=== PATIENT | male | born 1945 | race Hispanic/Latino ===

== ENCOUNTER 2017-09-01 13:25 | Inpatient (IN) | payer MEDICARE ==
[2017-09-01 15:29] LABS: ALB/GLOB RATIO 1.2 (1.1-1.8); BASO # 0.01 K/mm3 (0.0-2.0); BASO % 0.1 % (0.0-3.0); EOS % 0.4 % (1.5-5.0); GRAN # 7.21 (1.4-6.5); GRAN % 78.4 % (50.0-68.0); HEMOGLOBIN 13.7 g/dL (14.0-18.0); LYMPH # 1.2 (1.2-3.4); LYMPH % 12.5 % (22.0-35.0); MEAN CELL VOLUME 91.6 fl (80.0-105.0); MEAN CORPUSCULAR HGB CONC 33.8 g/dl (31.0-37.0); MEAN PLATELET VOLUME 11.7 fl (7.0-11.0); MONO # 0.8 (0.1-0.6); MONO % 8.6 % (1.0-6.0); RBC 4.42 10^6/uL (3.5-6.1); RED CELL DISTRIBUTION WIDTH 13.9 % (11.5-14.5); WHITE BLOOD COUNT 9.2 10^3/ul (4.5-11.0)
[2017-09-01 15:31] LABS: URINE BILIRUBIN NEGATIVE (NEGATIVE); URINE BLOOD NEGATIVE (NEGATIVE); URINE GLUCOSE (UA) NEGATIVE (NEGATIVE); URINE LEUKOCYTE ESTERASE NEGATIVE Leu/uL (NEGATIVE); URINE PROTEIN TRACE mg/dL (<30 mg/dL)
[2017-09-01 15:33] LABS: URINE APPEARANCE CLEAR (CLEAR); URINE COLOR YELLOW (YELLOW)
[2017-09-01 15:36] LABS: ALT/SGPT 25 U/L (7-56); AST/SGOT 20 U/L (17-59); BLOOD UREA NITROGEN 8 mg/dL (7-21); GFR AFRICAN-AMERICAN > 60; GFR NON-AFRICAN AMERICAN > 60
[2017-09-01 15:37] LABS: PROTHROMBIN TIME 11.8 SECONDS (9.4-12.5)
[2017-09-01 15:38] LABS: INR 1.03 (0.93-1.08)
[2017-09-01 15:40] LABS: TROPONIN I < 0.01 ng/mL
[2017-09-01 15:54] LABS: B-TYPE NATRIURETIC PEPTIDE 212 pg/mL (0-450)
[2017-09-01 16:17] LABS: URINE BACTERIA NEG (NEG); URINE EPITHELIAL CELLS 0 - 2 /hpf (0-5); URINE RBC 0 - 2 /hpf (0-2); URINE WBC NEGATIVE /hpf (0-6)
--- NOTE | 2017-09-01 16:37 | CT ---
PROCEDURE: CT HEAD WITHOUT CONTRAST. HISTORY: dizziness COMPARISON: None available. TECHNIQUE: Axial computed tomography images were obtained through the head/brain without intravenous contrast. Radiation dose: Total exam DLP = 895 mGy-cm. This CT exam was performed using one or more of the following dose reduction techniques: Automated exposure control, adjustment of the mA and/or kV according to patient size, and/or use of iterative reconstruction technique. FINDINGS: HEMORRHAGE: No intracranial hemorrhage. BRAIN: No mass effect or edema. No atrophy or chronic microvascular ischemic changes. VENTRICLES: Unremarkable. No hydrocephalus. CALVARIUM: Unremarkable. PARANASAL SINUSES: Mucosal thickening in the maxillary sinuses. Partial opacification of the ethmoid air cells MASTOID AIR CELLS: Unremarkable as visualized. No inflammatory changes. OTHER FINDINGS: None. IMPRESSION: No acute intracranial findings
--- NOTE | 2017-09-01 17:34 | RAD ---
HISTORY: dizziness COMPARISON: No prior. FINDINGS: LUNGS: No active pulmonary disease. PLEURA: No significant pleural effusion identified, no pneumothorax apparent. CARDIOVASCULAR: Normal. OSSEOUS STRUCTURES: No significant abnormalities. VISUALIZED UPPER ABDOMEN: Normal. OTHER FINDINGS: None. IMPRESSION: No active disease.
--- NOTE | 2017-09-01 19:40 | ED PDOC ---
Arrival/HPI - General Chief Complaint: Dizziness/Lightheaded Time Seen by Provider: 09/01/17 14:52 Historian: Patient - History of Present Illness Narrative History of Present Illness (Text): 09/01/17 19:36 71-year-old male presents today with dizziness and near syncope. Patient states he woke up today and states he just wasn't feeling well. Patient states he feels like when he tries to ambulate he is going to pass out. He is complaining of a slight frontal headache. Patient states he sometimes gets headaches prior to having a seizure. Patient states he took his Dilantin today. Patient states he was having chest pain this morning he denies shortness of breath. Denies abdominal pain. Denies any urinary symptoms. Patient states he just isn't feeling well. Pt denies fever/chills. No other complaints. Past Medical History - Provider Review Nursing Documentation Reviewed: Yes - Travel History Have you recently traveled outside [place] w/in the past 3 mons?: No - Infectious Disease Hx of Infectious Diseases: None - Psychiatric Hx Substance Use: No - Anesthesia Hx Anesthesia: No Family/Social History - Physician Review Nursing Documentation Reviewed: Yes Family/Social History: Unknown Family HX Smoking Status: Unknown If Ever Smoked Hx Alcohol Use: No Hx Substance Use: No Allergies/Home Meds Allergies/Adverse Reactions: Allergies No Known Allergies Allergy (Verified 09/01/17 14:36) Home Medications: Home Meds Medication Instructions Recorded Confirmed Phenytoin, Extended [Dilantin 0 mg PO DAILY 09/01/17 09/01/17 [place]] Review of Systems - Review of Systems Constitutional: Fatigue. absent: Fevers Respiratory: absent: SOB, Cough Cardiovascular: Chest Pain. absent: Palpitations, Syncope Gastrointestinal: absent: Abdominal Pain, Constipation, Diarrhea, Nausea, Vomiting Genitourinary Male: absent: Dysuria, Frequency, Hematuria Musculoskeletal: absent: Arthralgias, Back Pain, Neck Pain Skin: absent: Rash, Pruritis Neurological: Headache, Dizziness, Disequilibrium. absent: Speech Changes Psychiatric: absent: Anxiety, Depression Physical Exam Vital Signs Reviewed: Yes Vital Signs Temp Pulse Resp BP Pulse Ox 09/01/17 15:56 99.2 F 66 18 133/98 H 97 09/01/17 13:40 98.8 F 62 18 143/57 L 99 Temperature: Afebrile Blood Pressure: Normal Pulse: Regular Respiratory Rate: Normal Appearance: Positive for: Well-Appearing, Non-Toxic, Comfortable Pain Distress: None Mental Status: Positive for: Alert and Oriented X 3 Finger Stick Blood Glucose: 106 - Systems Exam Head: Present: Atraumatic Pupils: Present: PERRL Extroacular Muscles: Present: EOMI Conjunctiva: Present: Normal Ears: Present: Normal, NORMAL TM Mouth: Present: Moist Mucous Membranes Neck: Present: Normal Range of Motion, Trachea Midline Respiratory/Chest: Present: Clear to Auscultation, Good Air Exchange. No: Respiratory Distress, Accessory Muscle Use Cardiovascular: Present: Regular Rate and Rhythm, Normal S1, S2. No: Murmurs Abdomen: No: Tenderness, Distention, Peritoneal Signs, Rebound, Guarding Upper Extremity: Present: Normal ROM Lower Extremity: Present: Normal ROM Neurological: Present: GCS=15, Speech Normal Skin: Present: Warm, Dry, Normal Color Psychiatric: Present: Alert, Oriented x 3 Medical Decision Making ED Course and Treatment: 09/01/17 19:38 71-year-old male with a history of seizures presents with dizziness and near syncope Patient was stable vital signs in no distress CAT scan of the head:FINDINGS: HEMORRHAGE: No intracranial hemorrhage. BRAIN: No mass effect or edema. No atrophy or chronic microvascular ischemic changes. VENTRICLES: Unremarkable. No hydrocephalus. CALVARIUM: Unremarkable. PARANASAL SINUSES: Mucosal thickening in the maxillary sinuses. Partial opacification of the ethmoid air cells MASTOID AIR CELLS: Unremarkable as visualized. No inflammatory changes. OTHER FINDINGS: None. IMPRESSION: No acute intracranial findings CBC within normal limits CMP within normal limits Troponin within normal limits Urinalysis within normal limits CMP within normal limits ASA given po Case was discussed in depth with Dr. Banks excepts observational status admission to telemetry for evaluation of near-syncope and chest pain we'll consult Dr. Marquez and Dr. Hilton. all aspects of this case were discussed the attending of record. Impression: Near syncope, dizziness Admit observational status to telemetry 09/01/17 19:41 - Lab Interpretations Lab Results: 09/01/17 14:45 09/01/17 14:45 Lab Results 09/01/17 15:15: Phenytoin 10 09/01/17 14:45: Sodium 138, Potassium 3.8, Chloride 103, Carbon Dioxide 25, Anion Gap 13, BUN 8, Creatinine 0.7 L, Est GFR ( Amer) > 60, Est GFR (Non -Af Amer) > 60, Random Glucose 115 H, Calcium 9.0, Magnesium 1.9, Total Bilirubin 0.5, AST 20, ALT 25, Alkaline Phosphatase 69, Lactate Dehydrogenase 414, Total Creatine Kinase 111, Troponin I < 0.01, NT-Pro-B Natriuret Pep 212, Total Protein 7.2, Albumin 4.0, Globulin 3.2, Albumin/Globulin Ratio 1.2 09/01/17 14:45: Urine Color Yellow, Urine Appearance Clear, Urine pH 6.0, Ur Specific [place] 1.020, Urine Protein Trace H, Urine Glucose (UA) Negative, Urine Ketones Trace H, Urine Blood Negative, Urine Nitrate Negative, Urine Bilirubin Negative, Urine Urobilinogen 1.0 H, Ur Leukocyte Esterase Negative, Urine RBC 0 - 2, Urine WBC Negative, Ur Epithelial Cells 0 - 2, Urine Bacteria Neg 09/01/17 14:45: PT 11.8, INR 1.03, APTT 29.0 09/01/17 14:45: WBC 9.2, RBC 4.42, Hgb 13.7 L, Hct 40.5 L, MCV 91.6, MCH 31.0, MCHC 33.8, RDW 13.9, Plt Count 142, MPV 11.7 H, Gran % 78.4 H, Lymph % (Auto) 12.5 L, [place] % (Auto) 8.6 H, Eos % (Auto) 0.4 L, Baso % (Auto) 0.1, Gran # 7.21 H, Lymph # (Auto) 1.2, [place] # (Auto) 0.8 H, Eos # (Auto) 0.0, Baso # (Auto) 0.01 - RAD Interpretation Radiology Orders: 09/01/17 14:52 CHEST PORTABLE [RAD] Stat 09/01/17 14:53 HEAD W/O CONTRAST [CT] Stat - Medication Orders Current Medication Orders: Discontinued Medications Acetaminophen (Tylenol 325mg Tab) 975 mg PO STAT STA Stop: 09/01/17 16:55 Last Admin: 09/01/17 17:20 Dose: 975 mg MAR Pain/Vitals Document 09/01/17 17:20 LA (Rec: 09/01/17 17:21 LA [id number]) Pain Reassessment Is This A Pain ReAssessment? No Sleep Is patient sleeping during reassessment? No Presence of Pain Presence of Pain Yes Pain Scale Used Pain Scale Used Numeric Location Pain Location Body Site Hand Description Acute Intensity 4 Scale Used Numeric Aspirin (Aspirin) 325 mg PO STAT STA Stop: 09/01/17 16:58 Last Admin: 09/01/17 17:42 Dose: 325 mg NIHSS Scale ([place]) Time Performed: 14:55 - How Severe is the Stoke Baseline Level of Consciousness: 0=Alert LOC to Questions: 0=Both comments correct LOC to commands: 0=Obeys both correctly Best Gaze: 0=Normal Visual: 0=No visual loss Facial: 0=Normal Motor Arm - Left: 0=No drift Motor Arm - Right: 0=No drift Motor Leg - Left: 0=No drift Motor Leg - Right: 0=No drift Limb Ataxia: 0=Absent Sensory: 0=Normal Best Language: 0=No aphasia Dysarthia: 0=Normal articulation Extinction & Inattention (Neglect): 0=Normal, no object Score: 0 Risk Level: No Stroke Risk Disposition/Present on Arrival - Present on Arrival Any Indicators Present on Arrival: No History of DVT/PE: No History of Uncontrolled Diabetes: No Urinary Catheter: No History of Decub. Ulcer: No History Surgical Site Infection Following: Obstetrical/Gynecological Surgery - Disposition Have Diagnosis and Disposition been Completed?: Yes Diagnosis: Dizziness, Near syncope Disposition: HOSPITALIZED Disposition Time: 17:00 Patient Problems: Current Active Problems Problem Status Onset Dizziness Acute Near syncope Acute Condition: FAIR
[2017-09-01 22:26] VITALS: BMI 22.9
[2017-09-02] MEDS: Phenytoin 100 mg/4 ml Oral Susp UD PO SCH ×3 (05:43→21:36)
--- NOTE | 2017-09-02 10:44 | CARD ---
APPROVED REPORT EKG Measurement Heart [id number] <Conclusion> Normal sinus rhythm Nonspecific ST and T wave abnormality
[2017-09-02] MEDS ORDERED: Potassium Chloride 20 mEq ER Tab PO ONE (12:15)
[2017-09-02] MEDS: Insulin Reg-LOW-Coverage SC SCH ×3 (12:40→21:46)
[2017-09-02 13:13] LABS: TROPONIN I < 0.01 ng/mL
--- NOTE | 2017-09-02 22:54 | CON ---
REASON FOR CONSULTATION AND FOLLOWUP: Cardiac evaluation, dizziness, feels that he seemed to pass out. HISTORY OF PRESENT ILLNESS: Patient is a 71-year-old male with past medical history of hypertension, type 2 diabetes, anxiety disorder, who goes to Cardiology, Dr. Leena Euceda and yearly get stress test and echo, last stress test 6 weeks ago. Denies any chest pain, shortness of breath, or any palpitations. Feels yesterday dizzy and feels that he is going to fall, so came to the emergency room. Denies any loss of consciousness, denies any chest pain, denies any palpitation. PAST HISTORY: Significant for seizure disorder, type 2 diabetes, hypertension. SOCIAL HISTORY: Denies any smoking, but drinks socially. RECENT CARDIAC WORKUP: A stress test and echo done by PMD, Dr. Euceda, 4 to 6 weeks ago and was told okay. Patient usually gets yearly stress tests in with Dr. Euceda. REVIEW OF SYSTEMS: As per HPI. PHYSICAL EXAMINATION: VITAL SIGNS: Temperature afebrile, heart rate 60, blood pressure 146/80. HEENT: PERRLA. Extraocular muscles intact. NECK: Supple. No carotid bruit. No thyromegaly. CHEST: Clear to auscultation. HEART: S1 and S2, regular. ABDOMEN: Soft. EXTREMITIES: Clubbing and cyanosis negative. LABORATORY DATA: Blood workup as follows. WBC 9.8, hemoglobin 13.3, hematocrit 40.5, and platelet count 142. Chemistry shows sodium 138, potassium 3.8, chloride 103, carbon dioxide 25, anion gap of 13. BUN 8, creatinine 0.8. Troponin 0.02. EKG shows normal sinus rhythm, no acute ST-T changes noted. IMPRESSION: Dizziness, feels dizzy when standing more, denies any chest pain, no shortness of breath. History of diabetes, hypertension, and hyperlipidemia as well as history of seizure disorder. RECOMMENDATIONS: We will get lipid profile, TSH, hemoglobin A1c. We will get echo to assess LV function. Patient get periodically a stress test, last stress test 6 weeks ago, was told negative. We will follow with you. If he remains stable, possible discharge home. We will start insulin before meals and at bedtime low dose coverage. Lisinopril 10 mg daily starting today. We will get echo, lipid profile, TSH. Further recommendations will be made depending on hospital course. We will follow with you. Thank you Dr. Banks for providing me the opportunity in taking care of the patient, Juanpablo Vega. Genesis Hilton MD
[2017-09-03] MEDS ORDERED: Sodium Chloride 0.9% 250 ML IV STA (00:10)
--- NOTE | 2017-09-03 00:22 | CP.PCM.PN ---
Subjective - Date & Time of Evaluation Date of Evaluation: 09/02/17 Time of Evaluation: 23:50 - Subjective Subjective: Patient seen for hypotension noted by his RN(82/58)He is asymptomatic. His BP has been normal earlier today.Pt was admitted for c/o dizziness and feeling faint. Objective - Vital Signs/Intake and Output Vital Signs (last 24 hours): Temp Pulse Resp BP Pulse Ox 98.4 F 56 L 18 109/66 97 09/02/17 18:00 09/02/17 22:00 09/02/17 18:00 09/02/17 18:00 09/02/17 18:00 Intake and Output: 09/02/17 09/03/17 18:59 06:59 Intake Total 900 Output Total 750 Balance 150 - Medications Medications: Current Medications Aspirin (Aspirin) 325 mg PO DAILY [facility] Last Admin: 09/02/17 09:23 Dose: 325 mg Famotidine (Pepcid) 40 mg PO HS [facility] Last Admin: 09/02/17 21:37 Dose: 40 mg Insulin Human Regular (Humulin R Low) 0 units SC ACHS [facility] PRN Reason: Protocol Last Admin: 09/02/17 21:46 Dose: Not Given Lisinopril (Zestril) 10 mg PO DAILY [facility] Last Admin: 09/02/17 12:43 Dose: 10 mg Phenytoin (Dilantin) 100 mg PO Q8 [facility] Last Admin: 09/02/17 21:36 Dose: 100 mg - Labs Labs: PT 11.8 SECONDS (9.4-12.5) 09/01/17 14:45 INR 1.03 (0.93-1.08) 09/01/17 14:45 APTT 29.0 Seconds (25.1-36.5) 09/01/17 14:45 - Constitutional Appears: No Acute Distress - Head Exam Head Exam: ATRAUMATIC, NORMAL INSPECTION, NORMOCEPHALIC - Eye Exam Eye Exam: PERRL - ENT Exam ENT Exam: Mucous Membranes Moist - Neck Exam Neck Exam: Normal Inspection - Respiratory Exam Respiratory Exam: Clear to Ausculation Bilateral. absent: Rales, Rhonchi, Wheezes - Cardiovascular Exam Cardiovascular Exam: Bradycardia - GI/Abdominal Exam GI & Abdominal Exam: Soft, Normal Bowel Sounds. absent: Tenderness - Extremities Exam Extremities Exam: Normal Inspection. absent: Calf Tenderness - Neurological Exam Neurological Exam: Alert, Awake, Oriented x3 - Psychiatric Exam Psychiatric exam: Normal Affect - Skin Skin Exam: Dry, Normal Color, Warm Assessment and Plan - Assessment and Plan (Free Text) Assessment: Hypotension Plan: EKg done stat shows sinus bradycardia,rate of 58/min.Prior EKG shows a rate of 63/min.non specific changes are noted in both EKGs.[id number] Neg x 2,will order it now.Bolus of 250 cc of NS ordered now.
[2017-09-03] MEDS: Phenytoin 100 mg/4 ml Oral Susp UD PO SCH ×3 (05:06→21:39)
--- NOTE | 2017-09-03 06:15 | HP ---
DATE OF EXAM: 09/02/2017 CHIEF COMPLAINT: Dizziness, lightheadedness. HISTORY OF PRESENT ILLNESS: Mr. Juanpablo Vega is a 71-year-old male, came with dizziness and near syncope. The patient states that he woke up with the feeling of not well. The patient states that he feels like when he tries to ambulate, he is going to pass out. He is complaining of slight frontal headache, lightheadedness. The patient states that he sometimes gets headache prior to having seizures. The patient states that he took his Dilantin today and he was having chest pain this morning. No nausea, vomiting, diarrhea. No urinary symptoms. No fever. No chills. When I saw the patient, he was feeling better. PAST MEDICAL HISTORY: Seizures. FAMILY HISTORY: Father and mother noncontributory. HABITS: No smoking. No drugs. No ethanol. ALLERGIES: THE PATIENT IS NOT ALLERGIC WITH ANY MEDICATIONS. HOME MEDICATION: Dilantin. REVIEW OF SYSTEMS: The patient is seen and examined on bedside on 09/02/2017. Looking comfortable at that moment, just feeling fatigued, but no fever. No shortness of breath or coughing. Chest pain absent. No syncope or palpitation. No abdominal pain, constipation, diarrhea, nausea, vomiting. No dysuria, frequency or hematuria. No arthralgia, back pain, neck pain. No pruritus. But complaining of dizziness, headache, disequilibrium. No speech changes. No psychiatric disorders or depression. PHYSICAL EXAMINATION: VITAL SIGNS: Temperature 97.8, pulse 59, blood pressure 81/92. On admission, blood pressure was 143/57, Respiratory rate 18, pulse oximetry 96%. HEENT: Head normocephalic, atraumatic. Eyes PERRLA. Extraocular muscles intact. Conjunctivae clear. Nose patent. Mucous membrane moist. NECK: Supple. No carotid bruit. No JVD or thyromegaly. CHEST: Bilaterally symmetrical. HEART: S1 and S2 positive. LUNGS: Clear to auscultation. ABDOMEN: Soft. Bowel sounds positive. No organomegaly. EXTREMITIES: No edema. No cyanosis. NEUROLOGICAL: The patient is awake and alert. Moving all 4 extremities. No focal deficits. LABORATORY DATA: White blood cells 9.2, hemoglobin 13.7, hematocrit 40.5, platelets 142. Sodium 138, potassium 3.8, BUN 8, creatinine 0.7, glucose 126. Troponin is less than 0.01 x2. Urine has proteinuria, ketonuria, urobilinogenuria. ASSESSMENT AND PLAN: Mr. Juanpablo Vega is a 71-year-old male with anemia, hyperglycemia, proteinuria, ketonuria, bilirubinuria. Dilantin level is not therapeutic. History of seizures. Came with lightheadedness, dizziness and feelings of passing out. We did CAT scan of the head. Neurology consult called. Cardiology consult called to rule out arrhythmias. History of diabetes, hypercholesterolemia in the past. We will get lipid profile, TSH, hemoglobin A1c, anemia workup, and echocardiography. The patient gets periodical stress test. His last test was 6 weeks ago. As per the patient, it was negative. Put on sliding scale. Dr. Hilton started lisinopril, but the patient's blood pressure dropped. The patient was seen by physician, and now I will stop lisinopril and monitor the patient's blood pressure off the antihypertensive medication. I appreciated Dr. Hilton's input. Gastrointestinal and deep venous thrombosis prophylaxes given. CAT scan of the head reviewed by me. Chest x-ray was reviewed by me. Out of bed, physical therapy. Repeat labs. Kristi Banks MD MTDD
[2017-09-03 07:12] LABS: BASO # 0.01 K/mm3 (0.0-2.0); BASO % 0.1 % (0.0-3.0); EOS # 0.2 (0.0-0.7); EOS % 1.6 % (1.5-5.0); GRAN # 7.48 (1.4-6.5); GRAN % 76.2 % (50.0-68.0); HEMOGLOBIN 12.9 g/dL (14.0-18.0); LYMPH # 0.9 (1.2-3.4); LYMPH % 9.1 % (22.0-35.0); MEAN CELL VOLUME 91.5 fl (80.0-105.0); MEAN CORPUSCULAR HEMOGLOBIN 30.6 pg (25.0-35.0); MEAN CORPUSCULAR HGB CONC 33.4 g/dl (31.0-37.0); MEAN PLATELET VOLUME 11.6 fl (7.0-11.0); MONO # 1.3 (0.1-0.6); RBC 4.22 10^6/uL (3.5-6.1); RED CELL DISTRIBUTION WIDTH 14.1 % (11.5-14.5); WHITE BLOOD COUNT 9.8 10^3/ul (4.5-11.0)
[2017-09-03 07:37] LABS: ALB/GLOB RATIO 1.2 (1.1-1.8); ALBUMIN 3.6 g/dL (3.0-4.8); ALT/SGPT 25 U/L (7-56); AST/SGOT 28 U/L (17-59); BLOOD UREA NITROGEN 21 mg/dL (7-21); CALCIUM 8.8 mg/dL (8.4-10.5); GFR AFRICAN-AMERICAN > 60; GFR NON-AFRICAN AMERICAN > 60; HDL CHOLESTEROL 66 mg/dL (29-60)
[2017-09-03 07:44] LABS: LDL CHOLESTEROL 84 mg/dL (0-129)
[2017-09-03 07:57] LABS: IRON 79 ug/dL (45-180)
[2017-09-03] MEDS ORDERED: Sodium Chloride 0.9% 1,000 ML IV SCH (08:15)
[2017-09-03] MEDS: Insulin Reg-LOW-Coverage SC SCH ×3 (08:17→17:14)
--- NOTE | 2017-09-03 10:12 | CARD ---
APPROVED REPORT EKG Measurement Heart [id number] CT 166P54 [id number] <Conclusion> Sinus bradycardia Improved repolarization c/w ECG 09/01/17
[2017-09-03 10:18] LABS: % IRON SATURATION 32 % (20-55); TOTAL IRON BINDING CAPACITY 241 ug/dL (261-462)
[2017-09-03 13:37] LABS: FOLATE 11.4 ng/mL
--- NOTE | 2017-09-03 14:21 | CARD ---
APPROVED REPORT EXAM: Two-dimensional and M-mode echocardiogram with Doppler and color Doppler. INDICATION 2D DIMENSIONS IVSd1.2 (0.7-1.1cm)LVDd4.1 (3.9-5.9cm) PWd1.0 (0.7-1.1cm)LVDs3.1 (2.5-4.0cm) FS (%) 23.5 %LVEF (%)47.4 (>50%) M-Mode DIMENSIONS Left Atrium (MM)4.30 (2.5-4.0cm)Aortic Root3.40 (2.2-3.7cm) Aortic Cusp Exc.2.10 (1.5-2.0cm) Aortic Valve AoV Peak Kijytpkk901.0cm/Candis Peak GR.12mmHg Mitral Valve MV E Firbxlkm41.5cm/sMV A Cfikhakr06.5cm/sE/A ratio0.9 TDI Lateral E' Peak V9.26cm/sMedial E' Peak V7.21cm/sE/Lateral E'5.2 E/Medial E'6.7 Tricuspid Valve TR Peak Yijafoft730km/sRAP [id number] Peak Gr.27mmHg [id number] LEFT VENTRICLE The left ventricle is normal size. There is borderline to mild concentric left ventricular hypertrophy. Left ventricle systolic function is low normal.EF-55% There is mild hypokinesis in the mid-inferolateral wall. Transmitral Doppler flow pattern is Grade III-reversible restrictive diastolic dysfunction. No left ventricle thrombus noted on this study. There is no ventricular septal defect visualized. There is no left ventricular aneurysm. There is no mass noted in the left ventricle. RIGHT VENTRICLE The right ventricle is normal size. There is normal right ventricular wall thickness. The right ventricular systolic function is normal. ATRIA The left atrium is mildly dilated. The right atrium size is normal. The interatrial septum is intact with no evidence for an atrial septal defect. AORTIC VALVE The aortic valve is thickened but opens well. There is trace aortic regurgitation. There is no aortic valvular stenosis. There is no aortic valvular vegetation. MITRAL VALVE The mitral valve is thickened but opens well. Mitral regurgitation is trace. There is no mitral valve stenosis. There is no evidence of mitral valve prolapse. TRICUSPID VALVE The tricuspid valve leaflets are thickened , but open well. There is mild tricuspid regurgitation.RVSP-37 mmof Hg. There is no tricuspid valve stenosis. There is no tricuspid valve prolapse or vegetation. PULMONIC VALVE The pulmonary valve is normal in structure. There is trace pulmonic valvular regurgitation. There is no pulmonic valvular stenosis. GREAT VESSELS The aortic root is normal in size. The ascending aorta is normal in size. The pulmonary artery is normal. The IVC is normal in size and collapses >50% with inspiration. PERICARDIAL EFFUSION There is no pleural effusion. There is a trace pericardial effusion. <Conclusion> The left ventricle is normal size. Left ventricle systolic function is low normal.EF-55% There is mild hypokinesis in the mid-inferolateral wall. There is trace aortic regurgitation. Mitral regurgitation is trace. There is mild tricuspid regurgitation.RVSP-37 mmof Hg. There is trace pulmonic valvular regurgitation. The IVC is normal in size and collapses >50% with inspiration. There is a trace pericardial effusion.
--- NOTE | 2017-09-03 14:47 | CON ---
DATE: 09/03/2017 NEUROLOGY CONSULT CHIEF COMPLAINT: Dizziness, lightheadedness. HISTORY OF PRESENT ILLNESS: This is a 71-year-old man with past medical history of remote history of seizure disorder, on Dilantin; history of diabetes; hypertension; hypercholesterolemia. Came in for transient lightheadedness and dizziness and near syncope. Currently, sitting at the edge of bed, eating his food and is in no acute distress. His A1c is 5.3. deconditioned and weak. His B12 level was 178, which is low and he does have some B12 deficiency. Complaining of some underlying neck tightness, but no radicular symptoms. He had transient drop in his blood pressures in terms of 81/52. At this time, he is mildly deconditioned, but no acute events overnight. CAT scan of the head showed no acute intracranial abnormality. PAST MEDICAL HISTORY: As above. SOCIAL HISTORY: No illicit drug use, smoking or EtOH abuse. FAMILY HISTORY: Noncontributory. ALLERGIES: NO KNOWN DRUG ALLERGIES. MEDICATIONS: Reviewed by nurses' reconciliation sheet. REVIEW OF SYSTEMS: Fourteen-point review of systems is negative except as per the HPI. LABORATORY DATA: Sodium is 130, blood glucose today is 112, B12 level is low of 178. PHYSICAL EXAMINATION: GENERAL: The patient is sitting up in bed, in no acute distress. VITAL SIGNS: Temperature 98.2, pulse rate of 63, blood pressure 113/79, respiratory rate of 18, oxygen saturation 98% by room air. GENERAL: The patient is sitting up in bed, in no acute distress. HEENT: Atraumatic, normocephalic. PERRLA. Extraocular muscles intact. NECK: Supple. No JVD. No adenopathy noted. LUNGS: Clear to auscultation. No adventitious sounds. HEART: S1, S2. Normal rate and rhythm. No murmurs, rubs or gallops. ABDOMEN: Soft, nontender and nondistended. Bowel sounds are present. EXTREMITIES: No clubbing. No cyanosis. Peripheral pulses 2+ felt bilaterally. NEUROLOGIC: The patient is alert and oriented to person, place, month and year. Speech is fluent without any errors. Cranial nerves II through XII intact. Poor attention span and slow thought process. Motor exam: Slight increased tone throughout. Moves all extremities equally. No tremor seen. No pronator drift seen. Sensory exam: Decreased light touch and pinprick up to the calves bilaterally. Decreased vibration of the toes. DTRs are 2+ throughout, 1 at the ankles. Coordination: [id number] is intact. No dysmetria noted. Gait is deferred for now. ASSESSMENT AND PLAN: This is a 71-year-old man with history of diabetes, remote history of seizure and he has been seizure free on Dilantin on 100 mg p.o. every 8, history of hypothyroidism, who came in for lightheadedness and dizziness. He is mildly deconditioned, had low systolic and diastolic blood pressures, fluctuating. In addition, he is B12 deficient with a B12 level of 178. His dizziness seems more of a near syncope rather than vertigo. He is mildly deconditioned and has B12 deficiency. At this time, we will get, 1. PT/OT evaluation. 2. We will give B12 replacement. 3. Continue with Dilantin 100 mg p.o. every 8 for seizure prophylaxis. 4. Carotid Doppler. 5. Neurologically stable from my standpoint. Continue with physical therapy for deconditioning and outpatient physical therapy recommended. Thank you for this consult. Lloyd Marquez MD
--- NOTE | 2017-09-03 15:58 | PN ---
DATE: 09/03/2017 REASON FOR THE CONSULTATION AND FOLLOWUP: Cardiac evaluation, dizziness. SUBJECTIVE: The patient denies any chest pain, shortness of breath, or any palpitations. Feels a little better. PHYSICAL EXAMINATION: GENERAL: Not in any apparent distress. VITAL SIGNS: Temperature afebrile, heart rate , blood pressure 113/79. HEENT: PERRLA. Extraocular muscles intact. NECK: Supple. No carotid bruit. No thyromegaly. CHEST: Clear to auscultation. HEART: S1 and S2 regular. ABDOMEN: Soft. EXTREMITIES: Clubbing and cyanosis negative. LABORATORY DATA: Blood workup as follows: WBC 9.8, hemoglobin 12.9, hematocrit 38.6, platelet count 137. Chemistry shows sodium , potassium 4.4, chloride 106, carbon dioxide 25, anion gap 13, BUN 21, creatinine 0.9. Troponin 0.01 x3, negative. IMPRESSION: A 71-year-old male with a past medical history significant for seizure disorder, admitted with dizziness and hypertension. The patient was started on lisinopril. The patient dropped the blood pressure to 80, responded to the fluid. Currently, feels better. Still the blood pressure this morning was 81/52. This morning, he was asymptomatic. History of diabetes, questionable history of hypertension, hyperlipidemia, and seizure disorder. Repeat blood workup shows a triglyceride of 67, cholesterol 190, LDL is 84, HDL 66, TSH 7.25. Hemoglobin A1c pending. RECOMMENDATIONS: We will get echo to assess LV function. Continue IV fluids. Start IV fluids if pressure is low. Hold antihypertensive medication and we will start Synthroid 25 mcg daily and reassess the blood pressure by the tilt orthostatic. If no orthostatic hypotension and echo remains okay, possible discharge home because the patient has a periodic stress test , most recent stress test according to the patient was [address] Leena Euceda in [place] and the patient would like to follow up with Dr. Leena Euceda at [place] upon discharge. We will get echo to assess LV function, do the tilt orthostatic hypotension, check orthostatic. If no hypotension and after the patient becomes euvolemic after fluid, can be discharged as the troponin remains negative. No evidence of acute OK, but we will start low-dose of Synthroid. Thank you, Dr. Banks, for providing us the opportunity in taking care of the patient, Juanpablo Vega. Genesis Hilton MD
--- NOTE | 2017-09-03 21:48 | US ---
PROCEDURE: Bilateral carotid artery duplex ultrasound HISTORY: Carotid stenosis PHYSICIAN(S): Medhat Upton MD. TECHNIQUE: Duplex sonography and color-flow Doppler were used to evaluate the carotid bifurcations and limited segments of the vertebral arteries bilaterally. FINDINGS: There is mild smooth heterogeneous plaque noted at the carotid bifurcations bilaterally. The peak systolic velocity in the proximal right internal carotid artery is 93 cm/sec. This corresponds to a 20 to 39% proximal right ICA stenosis. Normal systolic velocities are noted in the proximal right external carotid artery. There is antegrade flow in the right vertebral artery. The peak systolic velocity in the proximal left internal carotid artery is 67 cm/sec. This corresponds to a 20 to 39% proximal left ICA stenosis. Normal systolic velocities are noted in the proximal left external carotid artery. There is antegrade flow in the left vertebral artery. IMPRESSION: 1. Bilateral 20-39% proximal ICA stenoses. 2. Antegrade flow in both vertebral arteries.
[2017-09-04] MEDS: Insulin Reg-LOW-Coverage SC SCH ×2 (01:09→08:25)
[2017-09-04] MEDS: Phenytoin 100 mg/4 ml Oral Susp UD PO SCH (05:19)
[2017-09-04] MEDS ORDERED: Levothyroxine 25 MCG TAB PO SCH (06:00)
[2017-09-04 06:21] VITALS: O2SAT 98
--- NOTE | 2017-09-04 08:31 | PN ---
DATE: 09/03/2017 SUBJECTIVE: Patient is a 71-year-old male. Patient was seen and examined at the bedside. Actually, I went 2 times to see the patient. In the morning, when I went to see the patient, patient was getting echocardiography. Now, I saw the patient in the evening. No nausea, vomiting, or diarrhea. No hematuria or hematochezia. No swelling of the legs. No chest pain, no palpitations. No headache, no dizziness. PHYSICAL EXAMINATION: VITAL SIGNS: Temperature 98.2, pulse 63, blood pressure 115/79, respiratory rate 18, pulse oxygenation 98% on room air. HEENT: Head is normocephalic and atraumatic. Eyes: PERRLA. Extraocular muscles intact. Conjunctivae clear. Nose patent. Mucous membranes moist. NECK: Supple. No carotid bruit. No JVD or thyromegaly. CHEST: Bilaterally symmetrical. HEART: S1 and S2 positive. LUNGS: Clear to auscultation. ABDOMEN: Soft. Bowel sounds present. No organomegaly. EXTREMITIES: No edema. No cyanosis. NEUROLOGIC: The patient is awake and alert. Moving all four extremities. No focal deficits. MEDICATIONS: Reviewed by me; aspirin, Dilantin, insulin, Pepcid, Synthroid, cyanocobalamin. LABORATORY DATA: White blood cells 9.8, hemoglobin 12.9, hematocrit 38.2, platelets 137. ASSESSMENT AND PLAN: 71-year-old male with anemia, hyperglycemia, proteinuria, ketonuria, urobilinogenuria, history of seizures, seen by neurologist, Dr. Lloyd Marquez. With history of seizure disorder on Dilantin, history of diabetes mellitus, hypertension, hypercholesterolemia, hypothyroidism, came with lightheadedness, and dizziness. He is mildly deconditioned. His dizziness seems to be more of near syncope, rather than vertigo. He is mildly deconditioned and has B12 deficiency. Physical therapy, occupational therapy, B12 replacement. Continue present treatment. GI, deep vein thrombosis prophylaxis. Repeat labs. We will follow up. Patient went for an echocardiography, results are pending. Kristi Banks MD [facility] # [id number] MTDHayley
--- NOTE | 2017-09-04 13:08 | PN ---
DATE: 09/04/2017 REASON FOR CONSULTATION AND FOLLOWUP: Cardiac evaluation, dizziness. SUBJECTIVE: Denies any chest pain, shortness of breath, or any palpitation. Feels better. OBJECTIVE: GENERAL: Not in apparent distress. VITAL SIGNS: As follows: Temperature afebrile, heart rate 59, blood pressure 117/59. HEENT: PERRLA. Extraocular muscles intact. NECK: Supple. No carotid bruit or thyromegaly. CHEST: Clear to auscultation. HEART: S1, S2 regular. ABDOMEN: Soft. EXTREMITIES: Clubbing and cyanosis negative. IMPRESSION: Yesterday, orthostatic was checked, was found to be lying 108/72, sitting 102/70. standing 90/60 at 2 p.m. Echo was done yesterday that shows ejection fraction 55%, mild hypokinesis of the inferior wall, trace aortic regurgitation, trace mitral regurgitation, mild tricuspid regurgitation, RV systolic pressure 37, trace pulmonary insufficiency, trace pericardial effusion. Dizziness most likely secondary to orthostatic hypotension, IV fluid was given that responded in the outpatient, he is free of dizziness. Recently, he was found to have hypothyroidism, so Synthroid was started. Echo did not show any significant structural heart disease. RECOMMENDATIONS: If no further episode of hypotension or dizziness, the patient can be discharged home. Follow up with Dr. Euceda, who does periodically stress test. Thank you, Dr. Banks, for providing us the opportunity in taking care of Juanpablo GoldenGary. We will follow with you. Once again, the patient upon discharge, I told the patient that he will follow up with Dr. Euceda and his chainman. Most likely, this episode is secondary to dehydration and orthostatic hypotension. Genesis Hilton MD
[2017-09-04 13:50] VITALS: BP 136/90; PULSE 75; RESP 17; TEMP 98
== END 2017-09-04 14:00 | disposition home or self-care (01) | DRG 312 ==
LOC: ED 13:25 → ERH 18:55 → 2RNO 20:53 → OBSVTOIN 09-03 17:27
PROVIDERS: ADMIT Internal Medicine; ATTEND Internal Medicine
DX: I95.1 Orthostatic hypotension (principal); G40.909 Epilepsy, unspecified, not intractable, without status epilepticus; D64.9 Anemia, unspecified; E53.8 Deficiency of other specified B group vitamins; E03.9 Hypothyroidism, unspecified; E86.0 Dehydration; E11.65 Type 2 diabetes mellitus with hyperglycemia; E78.00 Pure hypercholesterolemia, unspecified; I10 Essential (primary) hypertension

== ENCOUNTER 2018-04-05 05:50 | Inpatient (IN) | payer MEDICARE, OTHER ==
[2018-04-05 05:59] VITALS: BMI 18.6
[2018-04-05 07:22] LABS: BASO # 0.02 K/mm3 (0.0-2.0); BASO % 0.2 % (0.0-3.0); EOS # 0.4 (0.0-0.7); EOS % 4.3 % (1.5-5.0); GRAN # 4.94 (1.4-6.5); GRAN % 61.2 % (50.0-68.0); HEMOGLOBIN 12.8 g/dL (14.0-18.0); LYMPH # 1.7 (1.2-3.4); LYMPH % 21.2 % (22.0-35.0); MEAN CELL VOLUME 92.3 fl (80.0-105.0); MEAN CORPUSCULAR HEMOGLOBIN 30.8 pg (25.0-35.0); MEAN CORPUSCULAR HGB CONC 33.3 g/dl (31.0-37.0); MEAN PLATELET VOLUME 11.4 fl (7.0-11.0); MONO # 1.1 (0.1-0.6); MONO % 13.1 % (1.0-6.0); RBC 4.16 10^6/uL (3.5-6.1); RED CELL DISTRIBUTION WIDTH 13.4 % (11.5-14.5); WHITE BLOOD COUNT 8.1 10^3/uL (4.5-11.0)
[2018-04-05 07:29] LABS: INR 1.08; PARTIAL THROMBOPLASTIN TIME 26.4 Seconds (25.1-36.5); PROTHROMBIN TIME 12.4 SECONDS (9.4-12.5)
[2018-04-05 07:33] LABS: ACETAMINOPHEN < 10.0 ug/ml (10.0-20.0); SALICYLATE < 1 mg/dL (2.0-20.0)
[2018-04-05 07:40] LABS: ALB/GLOB RATIO 1.3 (1.1-1.8); ALBUMIN 4.1 g/dL (3.0-4.8); ALT/SGPT 36 U/L (7-56); AST/SGOT 41 U/L (17-59); BLOOD UREA NITROGEN 17 mg/dL (7-21); CALCIUM 9.6 mg/dL (8.4-10.5); GFR NON-AFRICAN AMERICAN > 60
--- NOTE | 2018-04-05 07:49 | ED PDOC ---
Arrival/HPI - General Chief Complaint: Altered Mental Status Time Seen by Provider: 04/05/18 06:59 Historian: Patient - History of Present Illness Narrative History of Present Illness (Text): 04/05/18 07:48 72 year old male, with past medical history of hypertension, hyperlipidemia, and seizures, presents to emergency department brought in by EMS for altered mental status. EMS reports that patient's called stating patient was confused and altered. Patient denies any urinary symptoms, fevers, chills, headache, dizziness, chest pain, shortness of breath, cough, abdominal pain, nausea, vomiting, diarrhea, back pain, neck pain, or any other complaints. Time/Duration: Prior to Arrival Symptom Onset: Gradual Symptom Course: Unchanged Activities at Onset: Light Context: Home Past Medical History - Provider Review Nursing Documentation Reviewed: Yes - Infectious Disease Hx of Infectious Diseases: None - Cardiac Hx Hypertension: Yes - Pulmonary Hx Respiratory Disorders: No - Neurological Hx Seizures: Yes - HEENT Hx HEENT Disorder: No - Renal Hx Renal Disorder: No - Endocrine/Metabolic Hx Endocrine Disorders: No - Hematological/Oncological Hx Blood Disorders: No - Integumentary Hx Dermatological Disorder: No - Musculoskeletal/Rheumatological Hx Falls: No - Gastrointestinal Hx Gastrointestinal Disorders: No - Genitourinary/Gynecological Hx Genitourinary Disorders: No - Psychiatric Hx Psychophysiologic Disorder: No Hx Substance Use: No - Anesthesia Hx Anesthesia: No Family/Social History - Physician Review Nursing Documentation Reviewed: Yes Family/Social History: Unknown Family HX Smoking Status: Never Smoked Hx Alcohol Use: No Hx Substance Use: No Allergies/Home Meds Allergies/Adverse Reactions: Allergies No Known Allergies Allergy (Verified 04/01/18 13:02) Review of Systems - Physician Review All systems were reviewed & negative as marked: Yes - Review of Systems Constitutional: absent: Fevers Respiratory: absent: SOB, Cough Cardiovascular: absent: Chest Pain Gastrointestinal: absent: Abdominal Pain Genitourinary Male: absent: Frequency, Hematuria, Urinary Output Changes Musculoskeletal: absent: Back Pain, Neck Pain Skin: absent: Rash Neurological: absent: Headache, Dizziness Physical Exam Vital Signs Reviewed: Yes Vital Signs Temp Pulse Resp BP Pulse Ox 04/05/18 07:18 98.1 F 67 18 120/81 96 04/05/18 05:59 98.1 F 79 16 148/91 H 95 Temperature: Afebrile Blood Pressure: Normal Pulse: Regular Respiratory Rate: Normal Appearance: Positive for: Well-Appearing, Non-Toxic, Comfortable Pain Distress: None Mental Status: Positive for: Alert and Oriented X 3 Finger Stick Blood Glucose: 120 - Systems Exam Head: Present: Atraumatic, Normocephalic Pupils: Present: PERRL Extroacular Muscles: Present: EOMI Conjunctiva: Present: Normal Mouth: Present: Moist Mucous Membranes Neck: Present: Normal Range of Motion Respiratory/Chest: Present: Clear to Auscultation, Good Air Exchange. No: Respiratory Distress, Accessory Muscle Use Cardiovascular: Present: Regular Rate and Rhythm, Normal S1, S2. No: Murmurs Abdomen: No: Tenderness, Distention, Peritoneal Signs Upper Extremity: Present: Normal Inspection. No: Cyanosis, Edema Lower Extremity: Present: Normal Inspection. No: Edema Neurological: Present: GCS=15, CN II-XII Intact, Speech Normal Skin: Present: Warm, Dry, Normal Color. No: Rashes Psychiatric: Present: Alert, Oriented x 3, Normal Insight, Normal Concentration Medical Decision Making ED Course and Treatment: 04/05/18 07:53 Impression: 72 year old male presents to emergency department brought in by EMS for altered mental status. Differential Diagnosis included but are not limited to: -- Sepsis -- Pneumonia -- UTI Plan: -- CT Head -- EKG -- Labs -- Chest X-ray -- Ativan -- Dilantin -- Ecotrin -- Lipitor -- Synthroid -- Urinalysis -- US Carotid and Vertebral Duplex -- Reassess and disposition Prior Visits: Notes and results from previous visits were reviewed. Progress Notes: - Lab Interpretations Lab Results: PT 12.4 SECONDS (9.4-12.5) 04/05/18 06:15 INR 1.08 04/05/18 06:15 APTT 26.4 Seconds (25.1-36.5) 04/05/18 06:15 Total Bilirubin 0.3 mg/dL (0.2-1.3) 04/05/18 06:15 AST 41 U/L (17-59) 04/05/18 06:15 ALT 36 U/L (7-56) 04/05/18 06:15 Alkaline Phosphatase 62 U/L (38-126) 04/05/18 06:15 Total Protein 7.1 g/dL (5.8-8.3) 04/05/18 06:15 Albumin 4.1 g/dL (3.0-4.8) 04/05/18 06:15 Globulin 3.1 gm/dL 04/05/18 06:15 Albumin/Globulin Ratio 1.3 (1.1-1.8) 04/05/18 06:15 - RAD Interpretation Narrative RAD Interpretations (Text): 04/05/18 16:21 CT Head, reviewed by radiologist: IMPRESSION: No acute intracranial pathology identified. Incidental findings as above. Mucosal thickening involving ethmoid air cells and right greater than left maxillary sinuses. Correlate clinically for sinusitis. Chest X-ray, reviewed by radiologist: IMPRESSION: No active disease. Radiology Orders: 04/05/18 07:01 CHEST PORTABLE [RAD] Stat 04/05/18 07:03 HEAD W/O CONTRAST [CT] Stat Stave Log Ripsaw Operator: Radiologist - Scribe Statement The provider has reviewed the documentation as recorded by the Scribe Ele Moser All medical record entries made by the Scribe were at my direction and personally dictated by me. I have reviewed the chart and agree that the record accurately reflects my personal performance of the history, physical exam, medical decision making, and the department course for this patient. I have also personally directed, reviewed, and agree with the discharge instructions and disposition. Disposition/Present on Arrival - Present on Arrival History of DVT/PE: No History of Uncontrolled Diabetes: No Urinary Catheter: No History of Decub. Ulcer: No History Surgical Site Infection Following: None - Disposition Disposition: HOSPITALIZED Condition: GOOD
[2018-04-05 09:09] LABS: PH,URINE 6.5 (4.7-8.0); URINE BILIRUBIN NEGATIVE (NEGATIVE); URINE BLOOD NEGATIVE (NEGATIVE); URINE GLUCOSE (UA) NEGATIVE (NEGATIVE); URINE LEUKOCYTE ESTERASE NEGATIVE Leu/uL (NEGATIVE); URINE PROTEIN NEGATIVE mg/dL (<30 mg/dL); URINE UROBILINOGEN 0.2 E.U./dL (<1 E.U./dL)
[2018-04-05 09:14] LABS: URINE APPEARANCE CLEAR (CLEAR); URINE COLOR YELLOW (YELLOW)
[2018-04-05 09:23] LABS: BARBITURATES, UR NEGATIVE (NEGATIVE); BENZODIAZEPINES, UR NEGATIVE (NEGATIVE); OPIATES, UR NEGATIVE (NEGATIVE); PHENCYCLIDINE, UR NEGATIVE (NEGATIVE)
--- NOTE | 2018-04-05 09:54 | CT ---
Date of service: 04/05/2018 PROCEDURE: CT HEAD WITHOUT CONTRAST. HISTORY: headache COMPARISON: Noncontrast head CT performed 09/01/17 TECHNIQUE: Axial computed tomography images were obtained through the head/brain without intravenous contrast. Radiation dose: Total exam DLP = 1237.18 mGy-cm. This CT exam was performed using one or more of the following dose reduction techniques: Automated exposure control, adjustment of the mA and/or kV according to patient size, and/or use of iterative reconstruction technique. FINDINGS: Mild streak artifact limits evaluation of the skull base. HEMORRHAGE: No intracranial hemorrhage. BRAIN: Diffuse atrophy with prominence of the ventricles and sulci noted. No mass effect or edema. Intracranial atherosclerosis. Mild scattered white matter hypodensities, which are nonspecific, but often seen with chronic microvascular ischemic disease. Please note that MRI with diffusion imaging is more sensitive in the detection of acute ischemic event. VENTRICLES: No hydrocephalus. CALVARIUM: Unremarkable. PARANASAL SINUSES: Mucosal thickening of the ethmoid air cells. Mucosal thickening of the right greater than left maxillary sinuses. MASTOID AIR CELLS: Unremarkable as visualized. No inflammatory changes. OTHER FINDINGS: Partial opacification of the external auditory canals, likely cerumen. IMPRESSION: No acute intracranial pathology identified. Incidental findings as above. Mucosal thickening involving ethmoid air cells and right greater than left maxillary sinuses. Correlate clinically for sinusitis.
--- NOTE | 2018-04-05 10:16 | RAD ---
Date of service: 04/05/2018 HISTORY: ams COMPARISON: 09/01/2017 FINDINGS: LUNGS: No active pulmonary disease. PLEURA: No significant pleural effusion identified, no pneumothorax apparent. CARDIOVASCULAR: No aortic atherosclerotic calcification present. Aortic tortuosity Normal cardiac size. No pulmonary vascular congestion. OSSEOUS STRUCTURES: No significant abnormalities. VISUALIZED UPPER ABDOMEN: Normal. OTHER FINDINGS: None. IMPRESSION: No active disease.
--- NOTE | 2018-04-05 13:58 | PCM.RRT ---
<Esvin Hurley - Last Filed: 04/05/18 14:05> RADAR SYSTEMS ENGINEER Nurse Assessment - Situation Date: 04/05/18 Time RADAR SYSTEMS ENGINEER was called: 13:35 RADAR SYSTEMS ENGINEER Responder Arrival Time: 13:26 RADAR SYSTEMS ENGINEER Location:: [address] [place] [address] Room Number: 563 RADAR SYSTEMS ENGINEER Reason for Call: Change in Mental Status RADAR SYSTEMS ENGINEER Called By: RN - Respiratory Oxygen Delivery Method: Nasal Cannula @L/min Oxygen Flow Rate: 4 Received Nebulizer Treatments:: No Was the Patient Ventilated with Bag/Mask 100% O2?: No Secretions Suctioned?: No Was the Patient Intubated?: No Was the Patient Placed on a Ventilator?: No - Medication Medications Administered During RADAR SYSTEMS ENGINEER: No medication administered - Diagnostic Test Ordered EKG: Yes (Sinus Rthym) Chest X-Ray: No CT Scan: No CPR started during RADAR SYSTEMS ENGINEER?: No - Vital Signs Vital Sign: Rapid Response Vital Sign Blood Pressure 108/55 Pulse Rate 83 Respiratory Rate 24 Temperature 98.8 F Oxygen Saturation 99 - Finger Stick Blood Glucose Finger Stick Blood Glucose: 202 - Time RADAR SYSTEMS ENGINEER Ended Time RADAR SYSTEMS ENGINEER Ended: 13:48 - Vital Signs at end of RADAR SYSTEMS ENGINEER Vital Signs at end of RADAR SYSTEMS ENGINEER: Rapid Response End Vital Sign Blood Pressure 139/70 Pulse Rate 97 Respiratory Rate 24 O2 Sat by Pulse Oximetry 99 - Recommendations Notifications: Attending Physician I.Reason for RADAR SYSTEMS ENGINEER - A) Acute Change in Patient: Subjective: Pt is a 72yo male who was found having a seizure in room 563-1. Pt has a history of seizures and was recently admitted to [facility] and discharged with antiepileptic medications which he did not fill. - Respiratory Oxygen Delivery Method: Nasal Cannula @L/min Oxygen Flow Rate: 4 - Head Head Exam: ATRAUMATIC, NORMOCEPHALIC - Respiratory Exam Respiratory Exam: absent: Accessory Muscle Use, Respiratory Distress - GI/Abdominal Exam GI & Abdominal Exam: Soft - Neurological Exam Additional exam: seizure activity - Extremities Exam Extremities Exam: Normal Inspection. absent: Pedal Edema Plan - Assessment of Findings&Treatment Plan Witnessed Seizure - EKG normal sinus rhythm, no signs of STEMI - POC glucose 202 - pt given dilantin - started PRN ativan if seizure activity persists - will consider ICU consult if seizure activity persists - Dr Marquez contacted - Dr Astudillo contacted - Call to Svetlana Vega, no answer. <Altaf Henson - Last Filed: 04/06/18 11:06> RADAR SYSTEMS ENGINEER Nurse Assessment - Vital Signs Vital Sign: Rapid Response Vital Sign Blood Pressure 108/55 Pulse Rate 83 Respiratory Rate 24 Temperature 98.8 F Oxygen Saturation 99 - Vital Signs at end of RADAR SYSTEMS ENGINEER Vital Signs at end of RADAR SYSTEMS ENGINEER: Rapid Response End Vital Sign Blood Pressure 139/70 Pulse Rate 97 Respiratory Rate 24 O2 Sat by Pulse Oximetry 99 Attending/Attestation - Attestation I have personally seen and examined this patient.: Yes I have fully participated in the care of the patient.: Yes I have reviewed all pertinent clinical information, including history, physical exam and plan: Yes Notes (Text): attending note; Patient seen and examined with resident during rapid response. Patient is postictal. Patient has generalized tonic-clonic seizure. Patient came from ER this morning. Vitals stable. Saturation is 98%. Placed on oxygen nasal cannula. Patient with a history of seizure disorder on Dilantin. Case discussed with PMD and neurology in detail. 1 g IV Dilaudid in ordered. IV Ativan when necessary ordered. Transfer the patient to monitored bed. Message left with patient's sister for call back and updated later.
--- NOTE | 2018-04-05 14:17 | HP ---
DATE OF EXAM: 04/05/2018 HISTORY OF PRESENT ILLNESS: The patient is 72-year-old who was brought in because of altered mental status. She has been confused, disoriented lately. No history of fever or chills. No history of nausea and vomiting. The patient was recently admitted in [facility] on 04/02/2018. He was found to be very weak and dizzy during that admission. He had flu like symptom. He was admitted on 04/02/2018 and he was discharged on 04/04/2018. PAST MEDICAL HISTORY: Significant for hypertension, hyperlipidemia and history of seizure disorder. SOCIAL HISTORY: He is lives with his , history of heavy smoking in the past and alcohol use in the past. HOME MEDICATIONS: He is on omeprazole, aspirin, Synthroid, Dilantin, Cozaar and Crestor. PHYSICAL EXAMINATION: GENERAL: He is awake and alert seem to be somewhat confused, able to move all extremities. VITAL SIGNS: He is afebrile. Pulse 85, respiration 19 and blood pressure 123/53. LUNGS: Bilateral fair airflow. No rhonchi or crackle. HEART: S1 and S2, audible. ABDOMEN: Soft and nontender. No rebound. No guarding. NEUROLOGICAL: The patient is awake, alert, but confused, disoriented. LABORATORY DATA: WBC is 8.1, hemoglobin 12.8, hematocrit 38.4 and platelet 154. PT is 12.4 and INR is 1.08. Chemistry; sodium 137, potassium 3.5, chloride 104, CO2 of 26, BUN 17, creatinine . Blood sugar 100. Urinalysis is unremarkable. Urine tox is negative. Dilantin level is 9. The patient had MRI done in [facility]. MRI of the brain on 04/02/2018 shows atrophy and chronic microvascular ischemic changes and had Carotid Doppler done that is pending. Carotid Doppler study on 04/02/2018 done in [facility] does not showing any hemodynamic compromise. IMPRESSION: 1. Confusion, etiology unknown; probably underlying dementia. 2. Hypertension. 3. Hyperlipidemia. 4. History of seizure disorder. PLAN: We will restart his Dilantin. We will check the lab. We will resume his medication. Physical therapy evaluation has been requested. Awaiting neuro consult. Natalie Turcios MD [facility] # [id number]
[2018-04-05] MEDS ORDERED: Influenza Vaccine 60 mcg/0.5 mL SYR (4YR UP) IM ONE (17:00)
[2018-04-05] MEDS ORDERED: Pneumococcal 23-Valent Vaccine IM ONE (17:00)
--- NOTE | 2018-04-05 18:04 | US ---
PROCEDURE: Bilateral carotid artery duplex ultrasound HISTORY: Carotid stenosis PHYSICIAN(S): Medhat Upton MD. TECHNIQUE: Duplex sonography and color-flow Doppler were used to evaluate the carotid bifurcations and limited segments of the vertebral arteries bilaterally. The exam is somewhat limited by tortuous vessels. FINDINGS: There is moderate heterogeneous echogenic plaque noted at the carotid bifurcations bilaterally. The peak systolic velocity in the proximal right internal carotid artery is 127 cm/sec. This corresponds to a 40-59 percent proximal right ICA stenosis. Normal systolic velocities are noted in the proximal right external carotid artery. There is antegrade flow in the right vertebral artery. The peak systolic velocity in the proximal left internal carotid artery is 75 cm/sec. This corresponds to a 20 to 39% proximal left ICA stenosis. Normal systolic velocities are noted in the proximal left external carotid artery. There is antegrade flow in the left vertebral artery. IMPRESSION: 1. 40-59 percent proximal right ICA stenosis. 2. 20-39 percent proximal left ICA stenosis. 3. Antegrade flow in both vertebral arteries.
--- NOTE | 2018-04-05 18:51 | CON ---
DATE: 04/05/2018 NEUROLOGY CONSULTATION CHIEF COMPLAINT: Seizure and confusion. HISTORY OF PRESENT ILLNESS: This is a 72-year-old man with history of hypertension, hyperlipidemia, seizures, noncompliant with his Dilantin, who is recently at [facility] on 04/01/2018 for syncopal event and fall, and his seizure meds were adjusted and was told to be placed on Trileptal while the patient did not take any Trileptal as given by neurologist, Dr. Iqbal. He underwent an EEG, which showed severe bilateral cerebral dysfunction, no evidence of epileptiform activity on 04/01/2018. In addition, he had an MRI and MRA of the head/brain, which showed no acute intracranial abnormality. He also had carotid Doppler done which shows no significant hemodynamic stenosis bilaterally. Currently, he is eating his food with the nurse at bedside. We added Trileptal 150 p.o. b.i.d. for seizure prophylaxis as he had breakthrough seizure. PAST MEDICAL HISTORY: As above. SOCIAL HISTORY: No illicit drug abuse, smoking, or EtOH abuse. REVIEW OF SYSTEMS: A 14-point review of systems is negative except per the HPI. FAMILY HISTORY: Noncontributory. MEDICATIONS: Reviewed by nurse's reconciliation sheet. PHYSICAL EXAMINATION GENERAL: The patient is seen up in bed, in no acute distress. HEENT: Atraumatic and normocephalic. PERRLA. Extraocular muscles are intact. NECK: Supple. No JVD. No adenopathy noted. LUNGS: Clear to auscultation. No adventitious sounds. HEART: S1 and S2. Normal rate and rhythm. No murmurs, rubs, or gallops. ABDOMEN: Soft, nontender, and nondistended. Bowel sounds present. EXTREMITIES: No clubbing. No cyanosis. Peripheral pulses 2+ felt bilaterally. NEUROLOGIC: The patient is alert and oriented to person, place, and year. Recall after 5 minutes is 0/3. Poor attention span. Slow thought process. Cranial nerves II through XII are intact. Motor exam: Moves all extremities equally. Toes are downgoing bilaterally. Sensory exam; decreased light touch, pinprick up to the calves bilaterally, and decreased vibration of the toes. DTRs are 2+ throughout and 1 at both knees and ankles. Coordination and gait deferred for now. LABORATORY DATA: Sodium is 137, potassium 3.5, chloride 104, carbon dioxide of 26, BUN of 17, creatinine 0.8, random glucose of 100. IMPRESSION: Breakthrough seizure, likely noncompliance with medication and sleep deprivation. PLAN: 1. We will recommend to continue with Dilantin 100 mg p.o. t.i.d., in addition Trileptal 150 mg we will add p.o. b.i.d. for seizure-like activity. 2. Delirium precautions. 3. Monitor electrolytes and correct accordingly. 4. No need for further neuro imaging or EEG since the patient recently had. 5. Continue with aspirin 81 and Lipitor 40 mg for stroke prevention. Thank you for this consult. Lloyd Marquez MD
--- NOTE | 2018-04-05 19:53 | CARD ---
APPROVED REPORT Date of service: 04/05/2018 EKG Measurement Heart [id number] <Conclusion> Normal sinus rhythm ST & T wave abnormality, consider anterolateral ischemia Abnormal ECG
--- NOTE | 2018-04-05 20:13 | CARD ---
APPROVED REPORT Date of service: 04/05/2018 EKG Measurement Heart [id number] <Conclusion> Normal sinus rhythm Nonspecific ST and T wave abnormality Abnormal ECG
[2018-04-06] MEDS: Levothyroxine 50 MCG TAB PO SCH (06:22)
--- NOTE | 2018-04-06 13:35 | PN ---
DATE: 04/06/2018 SUBJECTIVE: The patient is a 72-year-old who had seizure yesterday. After that, he was found to be postictal, confused and disoriented. Seems to be more alert, but is still confused and disoriented. Eating well. PHYSICAL EXAMINATION: VITAL SIGNS: He is afebrile, pulse 52, respirations 20, blood pressure 115/75. LUNGS: Bilateral fair airflow. No rhonchi or crackle. HEART: S1 and S2 audible. ABDOMEN: Soft, nontender. No rebound. No guarding. NEUROLOGICAL: The patient is awake and alert, but confused and disoriented. LABORATORY DATA: Blood sugar is 202, urine tox is negative, Dilantin level is 9. Urine analysis is unremarkable. ASSESSMENT: 1. History of seizure disorder, the patient was postictal. 2. History of delirium. 3. Hypertension. 4. Hypothyroidism. PLAN: We will continue the patient on current medications. She is on Dilantin 100 three time daily. She has been started on Trileptal. We will get physical therapy evaluation. Natalie Turcios MD
[2018-04-07] MEDS: Levothyroxine 50 MCG TAB PO SCH (06:24)
--- NOTE | 2018-04-07 11:55 | PN ---
DATE: 04/07/2018 SUBJECTIVE: The patient has no complaints of any chest pain or shortness of breath. He is awake. PHYSICAL EXAMINATION: VITAL SIGNS: Temperature is 99.8, pulse is 63, blood pressure 113/74, respirations 20. GENERAL: The patient is lying in bed, flat, comfortable. HEENT: No oral lesion. Anicteric sclerae. Moist mucosa. NECK: No JVD, adenopathy, or thyromegaly. CARDIOVASCULAR: S1 and S2, regular. No murmurs, rubs, or gallops. LUNGS: Clear to auscultation bilaterally. No wheeze, rales, or rhonchi. ABDOMEN: Bowel sounds are positive, soft, nontender and nondistended. EXTREMITIES: no cyanosis, clubbing or edema. LABS: White count of 8.1, hemoglobin 12.8, creatinine 0.8. Carotid Doppler's done shows 20% to 39% proximal left ICA stenosis, 40% to 59% proximal right ICA stenosis. ASSESSMENT: 1. Seizure disorder. 2. Delirium, improving. 3. Hypertension. 4. Hypothyroidism. PLAN: The patient is currently comfortable. He is on Ativan as needed. The patient is on Dilantin for his seizures. He was not adherent to his medications. The patient is on Lipitor for dyslipidemia. He is on Synthroid for hypothyroidism. He is on Trileptal for his seizures as well. He is receiving a heart healthy diet. He is going to be seen by Physical Therapy. Sean Rueda MD
[2018-04-07 16:22] VITALS: RESP 19
[2018-04-08] MEDS: Levothyroxine 50 MCG TAB PO SCH (05:22)
[2018-04-08 08:02] VITALS: BP 118/77; TEMP 98.2; O2SAT 94
--- NOTE | 2018-04-08 14:48 | DS ---
HISTORY OF PRESENT ILLNESS: The patient is a 72-year-old seen and examined, seems to be much more alert, communicative. He is oriented to time, place, and person. He is eating well. PHYSICAL EXAMINATION: VITAL SIGNS: He is afebrile, pulse 63, respirations 19, blood pressure 118/77. LUNGS: Bilateral fair airflow. No rhonchi or crackles. HEART: S1, S2 audible. ABDOMEN: Soft, nontender. No rebound, no guarding. NEUROLOGIC: He is awake, alert, oriented, able to communicate. LABORATORY DATA: There is no new lab available today. ASSESSMENT: 1. Seizure disorder. 2. Altered mental status probably secondary to multiple seizures and was postictal. 3. Delirium improving. 4. Hypothyroidism. 5. Hypertension. PLAN: I will continue the patient on phenytoin. I will order for the Dilantin level in the a.m. Needs physical therapy, this evaluation has been requested. If permitted he will be transferred to [facility]. Natalie Turcios MD
[2018-04-08 15:24] VITALS: PULSE 75
== END 2018-04-08 15:59 | DRG 101 ==
LOC: ED 05:50 → ERH 10:07 → 5RNO 11:36 → 3RNO 17:39
PROVIDERS: ADMIT Internal Medicine; ATTEND Internal Medicine
DX: G40.909 Epilepsy, unspecified, not intractable, without status epilepticus (principal); F03.90 Unspecified dementia, unspecified severity, without behavioral disturbance, psychotic disturbance, mood disturbance, and anxiety; I10 Essential (primary) hypertension; E03.9 Hypothyroidism, unspecified; E78.5 Hyperlipidemia, unspecified; Z72.820 Sleep deprivation; Z91.19 Patient's noncompliance with other medical treatment and regimen; Z91.14 Patient's other noncompliance with medication regimen; Z87.891 Personal history of nicotine dependence

== ENCOUNTER 2018-04-08 15:59 | Inpatient (IN) | payer OTHER ==
[2018-04-08] MEDS ORDERED: Influenza Vaccine 60 mcg/0.5 mL SYR (4YR UP) IM ONE (17:15)
[2018-04-08] MEDS ORDERED: Pneumococcal 23-Valent Vaccine IM ONE (17:15)
[2018-04-09] MEDS: Levothyroxine 50 MCG TAB PO SCH (05:11)
--- NOTE | 2018-04-09 18:25 | HP ---
DATE OF EXAM: 04/09/2018 HISTORY OF PRESENT ILLNESS: The patient is 72-year-old, who was brought to emergency room by the family because of altered mental status. The patient does have history of seizure disorder and he had once while he was admitted and he remained postictal, he was confused and disoriented. He was admitted on 04/01 in [facility] with similar complaints and impression was viral syndrome. Patient's Dilantin level was low, so he was loaded with Dilantin. He did not have seizure since then, seem to be much more awake, alert, oriented, able to communicate, answer appropriately. Transferred to TCU for rehab and further management. PAST MEDICAL HISTORY: 1. Significant for hypertension. 2. Hyperlipidemia. 3. Seizure disorder. SOCIAL HISTORY: He is , lives with his . History of heavy smoking in the past and alcohol abuse in the past. MEDICATION: At home; he is on Dilantin, Cozaar, Crestor, Synthroid, aspirin, and omeprazole. PHYSICAL EXAMINATION: GENERAL: He is awake, alert, oriented, communicative. He has generalized weakness. VITAL SIGNS: He is afebrile. Pulse 59, respirations 16, and blood pressure 114/81. LUNGS: Bilateral fair air flow. No rhonchi or crackle. HEART: S1 and S2 audible. ABDOMEN: Soft, nontender. No rebound. No guarding. NEUROLOGICAL: The patient is awake, alert, oriented, able to communicate. Generalized weakness. Dilantin level is 12. ASSESSMENT: 1. Status post altered mental status significantly improved. 2. Seizure disorder. 3. Hypertension. 4. Hyperlipidemia. PLAN: Currently, the patient is on phenytoin 100 mg three times a day, aspirin 81 daily, he is on atorvastatin, he is on levothyroxine, and Trileptal has been started. We will continue the patient on these medications, encourage physical therapy. Followup patient in a.m. Natalie Turcios MD
[2018-04-10] MEDS: Levothyroxine 50 MCG TAB PO SCH (05:49)
--- NOTE | 2018-04-10 13:04 | PN ---
DATE: 04/10/2018 SUBJECTIVE: The patient is a 72-year-old, seen and examined, seen in gym, doing well, cooperative, doing therapy, feels a lot better, gets tired on walking small distance. PHYSICAL EXAMINATION: VITAL SIGNS: He is afebrile, pulse 62, respirations 20, blood pressure 114/83. LUNGS: Bilateral fair airflow. No rhonchi or crackle. HEART: S1 and S2 audible. ABDOMEN: Soft, nontender. No rebound. No guarding. NEUROLOGIC: The patient is awake, alert, oriented, communicative. LABORATORY DATA: Dilantin level is 12. ASSESSMENT: 1. Status post altered mental status. 2. History of seizure disorder. 3. Hypertension. 4. Hyperlipidemia. 5. Hypothyroidism. PLAN: We will continue the patient on current medications. Continue physical therapy. We will encourage physical therapy. We will follow up this patient in a.m. Natalie Turcios MD
[2018-04-11] MEDS: Levothyroxine 50 MCG TAB PO SCH (05:37)
[2018-04-11] MEDS ORDERED: Magnesium Citrate Oral SOL (300 ml) PO ONE (11:48)
[2018-04-11] MEDS ORDERED: POLYETHYLENE GLYCOL 3350 17 GM/Dose PACKET PO SCH (12:00)
--- NOTE | 2018-04-11 15:39 | PN ---
DATE: 04/11/2018 SUBJECTIVE: The patient is 72-year-old, seen and examined, sitting in chair, and seems to be comfortable. No nausea, vomiting and diarrhea. No seizure activity noted. Complained of constipation for almost a week. PHYSICAL EXAMINATION VITAL SIGNS: He is afebrile, pulse 64, respirations 16, and blood pressure 124/90. LUNGS: Bilateral fair airflow. No rhonchi or crackle. HEART: S1 and S2 audible. ABDOMEN: Soft and nontender. No rebound. No guarding. NEUROLOGICAL: The patient is awake, alert, oriented, communicative, and answers appropriately. ASSESSMENT: 1. Altered mental status. 2. Seizure disorder status post, post-ictal confusion. 3. Hypertension. 4. Hyperlipidemia. 5. Hypothyroidism. PLAN: Currently, the patient is on Trileptal and Dilantin, we will continue that. I gave him magnesium citrate and keep him on MiraLax and we will hold MiraLax in case if he develops diarrhea. We will followup. Natalie Turcios MD
[2018-04-12] MEDS: Levothyroxine 50 MCG TAB PO SCH (05:40)
[2018-04-12] MEDS ORDERED: POLYETHYLENE GLYCOL 3350 17 GM/Dose PACKET PO SCH (10:00)
[2018-04-12] MEDS: POLYETHYLENE GLYCOL 3350 17 GM/Dose PACKET PO SCH (10:05)
--- NOTE | 2018-04-12 14:57 | PN ---
DATE: 04/12/2018 SUBJECTIVE: The patient is 72-year-old, seen and examined, seen in gym, complain of right shoulder pain since last night. Denies any trauma. Denies any fall. PHYSICAL EXAMINATION VITAL SIGNS: He is afebrile, pulse 65, respirations 18 and blood pressure 133/80. LUNGS: Bilateral fair airflow. No rhonchi or crackle. HEART: S1 and S2 audible. ABDOMEN: Soft and nontender. No rebound. No guarding. NEUROLOGIC: The patient is awake, alert, oriented, able to communicate. Right shoulder, he has full range of motion except extension and abduction. He experience some pain. ASSESSMENT: 1. Status post altered mental status, seems to be improving. 2. Right shoulder sprain. 3. Hypothyroidism. PLAN: We will continue the patient on Dilantin, he is on aspirin 81 daily, he is on Lipitor and he is on MiraLax. He will be given extra dose of magnesium citrate today. We will order Mobic and . Followup the patient in a.m. Natalie Turcios MD
[2018-04-12] MEDS ORDERED: Magnesium Citrate Oral SOL (300 ml) PO ONE (15:24)
[2018-04-13] MEDS: Levothyroxine 50 MCG TAB PO SCH (05:36)
[2018-04-13] MEDS: POLYETHYLENE GLYCOL 3350 17 GM/Dose PACKET PO SCH (09:58)
--- NOTE | 2018-04-13 16:19 | RAD ---
Date of service: 04/13/2018 PROCEDURE: Radiographs of the Right Shoulder HISTORY: pain COMPARISON: No prior. FINDINGS: BONES: Normal. No fracture. JOINTS: Normal. Glenohumeral and acromioclavicular joints preserved. No osteoarthritis. SOFT TISSUES: Normal. OTHER FINDINGS: None. IMPRESSION: Normal radiographs of the right shoulder.
--- NOTE | 2018-04-13 16:44 | PN ---
DATE: 04/13/2018 SUBJECTIVE: The patient is a 72-year-old, seen and examined for complaint of right shoulder pain. Apparently, antiinflammatory is not helping. PHYSICAL EXAMINATION: VITAL SIGNS: He is afebrile, pulse 66, respirations 18, blood pressure 135/91. LUNGS: Bilateral fair air flow. No rhonchi or crackle. HEART: S1 and S2 audible. ABDOMEN: Soft, nontender, no rebound, no guarding. He complained of constipation. NEUROLOGIC: The patient is awake, alert, oriented, communicative, ambulatory. Able to move all extremities; only the right shoulder he has restrictive movement secondary to pain. ASSESSMENT: 1. History of seizure disorder. 2. Status post altered mental status. 3. Hypertension. 4. Hypothyroidism. 5. Hyperlipidemia. PLAN: I will consult Dr. Downs to take care of his right shoulder, order for x-ray of shoulder. Might need intraarticular injection and keep him on stool softener. Follow up this patient in a.m. Natalie Turcios MD
[2018-04-13] MEDS: Oxycodone/Acetaminophen 5/325 mg Tab PO PRN (18:35)
[2018-04-14] MEDS: Levothyroxine 50 MCG TAB PO SCH (05:43)
[2018-04-14] MEDS ORDERED: MethylPREDNISolone Depo 40 mg/ml Inj IM ONE (07:52)
[2018-04-14] MEDS ORDERED: Bupivacaine 0.5% Inj(30mL) IJ ONE (07:52)
[2018-04-14] MEDS: POLYETHYLENE GLYCOL 3350 17 GM/Dose PACKET PO SCH (09:50)
[2018-04-14 11:20] VITALS: O2SAT 96
[2018-04-14 11:21] VITALS: BP 130/91; RESP 18; TEMP 97.5
[2018-04-14] MEDS: Oxycodone/Acetaminophen 5/325 mg Tab PO PRN ×2 (13:59→21:16)
--- NOTE | 2018-04-14 16:08 | CON ---
DATE: 04/14/2018 HISTORY OF PRESENT ILLNESS: The patient is a 72-year-old male who suffered from right shoulder pain for several weeks, right-hand dominant. He had a past history of doing a lot of heavy work, lifting boxes and he has tenderness to the subacromial region and AC joint area of the right shoulder. X-ray show mild AC joint arthrosis at right side with suggestion of subacromial impingement and small rotator cuff tear with a high riding and he has subacromial spurring indicating rotator cuff dysfunction and subacromial impingements, so with this finding it could help this pain by injecting to subacromial region with Depo-Medrol and Marcaine, which we did to help him do physical therapy for shoulder exercises and deltoid strengthening exercises i follow him in the office.if needed He will be going home in couple of days. FINAL DIAGNOSES: Subacromial impingement, acromioclavicular joint arthrosis and bursitis, subacromial region right shoulder with small rotator cuff tear. Quang Downs DO [facility]
--- NOTE | 2018-04-14 21:22 | PN ---
DATE: 04/14/2018 SUBJECTIVE: The patient is a 72-year-old, seen and examined, complaining of right shoulder pain. Otherwise, doing well, participating in therapy. PHYSICAL EXAMINATION: VITAL SIGNS: He is afebrile, pulse 50, respirations 18, and blood pressure 130/91. LUNGS: Bilateral fair air flow. No rhonchi or crackle. HEART: S1 and S2 audible. ABDOMEN: Soft, nontender, no rebound, no guarding. NEUROLOGIC: The patient is awake, alert, oriented, communicative. DIAGNOSTIC DATA: His right shoulder is normal radiograph. ASSESSMENT: 1. Status post altered mental status. 2. Status post postictal because of multiple seizures at home. 3. Right shoulder sprain. 4. Hypertension. 5. Hypothyroidism. PLAN: We will continue the patient on NSAID. Continue on Dilantin. Awaiting Dr. Downs's evaluation. We will follow up patient. Natalie Trucios MD
[2018-04-15] MEDS: Levothyroxine 50 MCG TAB PO SCH (05:05)
[2018-04-15] MEDS: Oxycodone/Acetaminophen 5/325 mg Tab PO PRN ×2 (07:51→16:42)
[2018-04-15] MEDS: POLYETHYLENE GLYCOL 3350 17 GM/Dose PACKET PO SCH (09:27)
[2018-04-15 14:15] VITALS: PULSE 66
--- NOTE | 2018-04-15 14:44 | PN ---
DATE: 04/15/2018 SUBJECTIVE: The patient is 72 years old, seen and examined, doing well. His right shoulder pain is little better. PHYSICAL EXAMINATION VITAL SIGNS: The patient is afebrile, pulse 50, respirations 18, and blood pressure 130/91. LUNGS: Bilateral fair airflow. No rhonchi or crackles. HEART: S1 and S2 audible. ABDOMEN: Soft, nontender. No rebound. No guarding. NEUROLOGIC: The patient is awake, alert, oriented, communicative. ASSESSMENT: 1. Status post altered mental status. 2. Seizure disorder. 3. Status post postictal confusion. 4. Right shoulder sprain, status post intra-articular injection. 5. Hypothyroidism. PLAN: We will continue the patient on current medications. Discharge plan in a.m. Natalie Turcios MD
[2018-04-16] MEDS: Levothyroxine 50 MCG TAB PO SCH (06:21)
[2018-04-16] MEDS: POLYETHYLENE GLYCOL 3350 17 GM/Dose PACKET PO SCH (09:31)
--- NOTE | 2018-04-16 17:39 | DS ---
HISTORY OF PRESENT ILLNESS: The patient is 72 years old, who was initially admitted on 04/05 with altered mental status. While the patient was admitted, overnight, he developed seizure, became increasingly confused, poor oral intake, difficulty walking. The patient was evaluated by neurologist, had neuro workup done, unremarkable. The patient was deconditioned, had difficulty walking, so he was admitted in TCU on 04/08. He received physical therapy this . His stay was uneventful. No seizure noted. PHYSICAL EXAMINATION: GENERAL: He is awake, alert, oriented, communicative. VITAL SIGNS: He is afebrile, pulse 50, respirations 18, blood pressure 116/69. LUNGS: Bilateral fair airflow. No rhonchi or crackles. HEART: S1 and S2 audible. ABDOMEN: Soft, nontender. No rebound, no guarding. NEUROLOGIC: The patient is awake, alert, oriented, communicative. Moves all extremities. He only has right shoulder decrease range of motion secondary to pain. He was seen by Dr. Downs, had intra-articular injection given. He feels better since then. ASSESSMENT AND PLAN: 1. Altered mental status secondary to seizure. 2. Uncontrolled seizures. 3. Right shoulder osteoarthritis. 4. Hypothyroidism. PLAN: The patient is being discharged today. He was given prescription on Mobic 15 mg daily, Trileptal 150 twice a day, and he will continue Synthroid, he will continue aspirin and Dilantin 100 mg 3 times a day and will continue on Crestor. He will be followed by PMD in . Natalie Turcios MD
== END 2018-04-16 15:25 | disposition home or self-care (01) | DRG 556 ==
LOC: TRCU 15:59
PROVIDERS: ADMIT Internal Medicine; ATTEND Internal Medicine
PROC: F07Z9FZ Gait Training/Functional Ambulation Treatment using Assistive, Adaptive, Supportive or Protective Equipment (ICD-10-PCS; principal; 2018-04-09)
PROC: F08Z4FZ Home Management Treatment using Assistive, Adaptive, Supportive or Protective Equipment (ICD-10-PCS; 2018-04-09)
PROC: 3E0U33Z Introduction of Anti-inflammatory into Joints, Percutaneous Approach (ICD-10-PCS; 2018-04-14)
PROC: 3E0U3BZ Introduction of Anesthetic Agent into Joints, Percutaneous Approach (ICD-10-PCS; 2018-04-14)
DX: R26.2 Difficulty in walking, not elsewhere classified (principal); G40.909 Epilepsy, unspecified, not intractable, without status epilepticus; M19.011 Primary osteoarthritis, right shoulder; M75.41 Impingement syndrome of right shoulder; M75.100 Unspecified rotator cuff tear or rupture of unspecified shoulder, not specified as traumatic; I10 Essential (primary) hypertension; E03.9 Hypothyroidism, unspecified; E78.5 Hyperlipidemia, unspecified; K59.00 Constipation, unspecified; Z87.891 Personal history of nicotine dependence